=== PATIENT | male | born 1980 | race American Indian/Alaskan Native ===

== ENCOUNTER 2016-04-29 00:09 | Emergency (ER) | payer SELFPAY ==
[2016-04-29 00:39] VITALS: BP 123/74
[2016-04-29 01:48] LABS: Anion Gap 15 mmol/L; BUN/Creatinine Ratio 13.33; Blood Urea Nitrogen 12 mg/dL (9-20); Calcium 9.1 mg/dL (8.4-10.2); Carbon Dioxide 26 mmol/L (22-30); Chloride 102.5 mmol/L (98-107); Glucose 95 mg/dL (75-100); Potassium 4.5 mmol/L (3.6-5.0); Sodium 139 mmol/L (137-145)
[2016-04-29 02:11] LABS: Basophils % (Auto) 0.3 % (0.0-1.8); Eosinophils % (Auto) 0.8 % (0.0-4.3); Hematocrit 43.3 % (35.5-45.6); Hemoglobin 13.4 gm/dl (11.8-15.2); Mean Corpuscular HGB Conc 31 % (32-34); Mean Corpuscular Volume 71 fl (84-94); Platelet Count 202 K/mm3 (140-440); Red Blood Count 6.09 M/mm3 (3.65-5.03); Red Cell Distribution Width 16.1 % (13.2-15.2); White Blood Count 4.7 K/mm3 (4.5-11.0)
[2016-04-29 02:14] LABS: Mean Corpuscular Hemoglobin 22 pg (28-32)
--- NOTE | 2016-04-29 08:52 | XRay Report ---
ROUTINE CHEST, TWO VIEWS: PA and lateral views demonstrate the heart and mediastinal contour to be of normal size and shape. The lungs are clear and fully expanded and the soft tissues and bony structures are normal. IMPRESSION: Normal study.
--- NOTE | 2016-04-30 10:21 | ED Elopement Review ---
ED Pt Elopement review - Results review Lab results: Laboratory Tests 04/29/16 04/29/16 01:18 01:18 WBC 4.7 RBC 6.09 H Hgb 13.4 Hct 43.3 MCV 71 L MCH 22 L MCHC 31 L RDW 16.1 H Plt Count 202 Lymph % (Auto) 30.8 [place] % (Auto) 11.2 H Eos % (Auto) 0.8 Baso % (Auto) 0.3 Lymph # 1.5 [place] # 0.5 Eos # 0.0 Baso # 0.0 Seg Neutrophils % 56.9 Seg Neutrophils # 2.7 Sodium 139 Potassium 4.5 Chloride 102.5 Carbon Dioxide 26 Anion Gap 15 BUN 12 Creatinine 0.9 Estimated GFR > 60 BUN/Creatinine Ratio 13.33 Glucose 95 Calcium 9.1 - Call Back decision Pt Call Back Decision: No action required ([id number])
== END 2016-04-29 01:05 | disposition left against medical advice (07) ==
LOC: ED 00:09
DX: R05 Cough (principal); R11.10 Vomiting, unspecified; R19.7 Diarrhea, unspecified; Z53.21 Procedure and treatment not carried out due to patient leaving prior to being seen by health care provider
CPT/HCPCS: 36415; 71020; 80048; 85025; 87040

== ENCOUNTER 2016-05-04 21:30 | Emergency (ER) | payer SELFPAY ==
[2016-05-04] MEDS ORDERED: TORADOL IV ONE (22:23)
[2016-05-04] MEDS ORDERED: ZOFRAN IV ONE (22:23)
[2016-05-04] MEDS ORDERED: NACL 0.9% 1000 ML 1,000 ML IV ONE (22:23)
[2016-05-04] MEDS ORDERED: ATIVAN IV ONE (23:46)
[2016-05-04 23:48] LABS: Alanine Aminotransferase 64 units/L (7-56); Albumin 3.5 g/dL (3.9-5); Albumin/Globulin Ratio 0.8 %; Alkaline Phosphatase 139 units/L (35-129); Anion Gap 14 mmol/L; BUN/Creatinine Ratio 9.16; Bilirubin,Total 0.2 mg/dL (0.1-1.2); Blood Urea Nitrogen 11 mg/dL (9-20); Calcium 8.5 mg/dL (8.4-10.2); Carbon Dioxide 24 mmol/L (22-30); Chloride 105.6 mmol/L (98-107); Glucose 110 mg/dL (75-100); Lipase 47 units/L (13-60); Potassium 3.7 mmol/L (3.6-5.0); Sodium 140 mmol/L (137-145)
[2016-05-04 23:55] LABS: Basophils % (Auto) 0.2 % (0.0-1.8); Eosinophils % (Auto) 0.3 % (0.0-4.3); Hematocrit 38.7 % (35.5-45.6); Hemoglobin 12.1 gm/dl (11.8-15.2); Mean Corpuscular HGB Conc 31 % (32-34); Mean Corpuscular Volume 71 fl (84-94); Platelet Count 220 K/mm3 (140-440); Red Blood Count 5.45 M/mm3 (3.65-5.03); Red Cell Distribution Width 16.1 % (13.2-15.2)
[2016-05-04 23:58] LABS: Mean Corpuscular Hemoglobin 22 pg (28-32)
[2016-05-05 01:09] LABS: Bilirubin,Urine NEG (Negative); Blood,Urine SM (Negative); Ketones,Urine NEG (Negative); Leukocyte Esterase,Urine NEG (Negative); Mucus,Urine FEW /HPF; Nitrite,Urine NEG (Negative); Protein,Urine <15 mg/dL mg/dL (Negative); Urobilinogen,Urine < 2.0 mg/dL (<2.0); WBC,Urine < 1.0 /HPF (0.0-6.0)
--- NOTE | 2016-05-05 02:00 | XRay Report ---
FINAL REPORT PROCEDURE: XR CHEST ROUTINE 2V TECHNIQUE: PA and lateral chest radiographs were obtained. CPT 17984 HISTORY: fever, cough COMPARISON: No prior studies are available for comparison. FINDINGS: Heart: Normal. Mediastinum/Vessels: Normal. Lungs/Pleural space: Mild atelectasis bilateral lower lungs. No effusion or pneumothorax. Bony thorax: No acute osseous abnormality. Other: IMPRESSION: Mild bilateral lower lung atelectasis.
[2016-05-05] MEDS ORDERED: NACL 0.9% 1000 ML 1,000 ML IV ONE (02:41)
--- NOTE | 2016-05-05 04:32 | Emergency Department Report ---
ED Fever HPI - General Chief Complaint: Fever Stated Complaint: FEVER Time Seen by Provider: 05/04/16 22:05 Source: patient Exam Limitations: no limitations - History of Present Illness Initial Comments: 35-year-old male with a past medical history of HIV/AIDS and bipolar disorder presents to the hospital complains of fever today. 101.9 upon arrival and Patient states he had 2 episodes of vomiting and 3 episodes of diarrhea. Also reports a cough productive of green sputum with intermittent wheezing. He complains of generalized body aches including a mild headache without neck stiffness. No reports of dysuria. Patient did not receive a flu shot. Patient is noncompliant with HIV medications and has not had a CD4 checked in quite some time. ED Review of Systems ROS: Stated complaint: FEVER Other details as noted in HPI Comment: All other systems reviewed and negative Other: Constitutional: Positive fever chew Eyes: No eye pain visual changes ENT: Sore throat Neck: Denies pain Respiratory: Cough and intermittent wheezing Cardiovascular: Denies chest pain, palpitations, syncope GI: Denies abdominal pain : Denies dysuria Musculoskeletal: Lower back pain Skin: Denies rash, lesions, erythema Neurologic: Positive headache Psychiatric: Denies suicidal ideation, hallucinations ED Past Medical Hx - Past Medical History Previous Medical History?: Yes Hx Psychiatric Treatment: Yes (depression bipolar) Hx HIV: Yes Additional medical history: syphillis, BIPOLAR,DEPRESSION - Social History Smoking Status: Never Smoker Substance Use Type: None - Medications Home Medications: Home Medications Medication Instructions Recorded Confirmed Last Taken Type traMADol [Ultram] 50 mg PO Q6HR PRN #20 tablet 05/07/15 Unknown Rx Sulfamethoxazole/Trimethoprim 1 each PO BID #14 tablet 05/09/15 Unknown Rx [Bactrim DS TAB] Clindamycin [Clindamycin CAP] 300 mg PO Q8H #30 cap 01/12/16 Unknown Rx Ibuprofen [Motrin 600 MG tab] 600 mg PO Q6H PRN #20 tablet 01/12/16 Unknown Rx Azithromycin [Zithromax Z-HERNÁN] 1 dose PO DAILY 5 Days 05/05/16 Unknown Rx Ibuprofen [Motrin] 800 mg PO Q8HR PRN #30 tablet 05/05/16 Unknown Rx Promethazine [Phenergan TAB] 25 mg PO Q6HR PRN #30 tab 05/05/16 Unknown Rx ED Physical Exam - General Limitations: Altered Mental Status, Other - Other Other exam information: General: No limitations Head exam: Atraumatic, normocephalic Eyes exam: Normal appearance ENT: Moist mucous membrane, no thrush and no exudate Neck exam: Normal inspection, full range of motion Respiratory exam: Clear to auscultation bilateral, no wheezes, rales, crackles Cardiovascular: Mild tachycardia regular rhythm Abdomen: Soft, nondistended, and nontender, with normal bowel sounds, no rebound, or guarding Extremity: Full range of motion normal inspection no deformity Back: Normal Inspection, full range of motion, no tenderness Neurologic: Alert, oriented x3, cranial nerves intact, no motor or sensory deficit Psychiatric: normal affect, normal mood Skin: Warm, dry, intact ED Course Vital Signs 05/04/16 05/04/16 05/05/16 21:38 21:46 00:39 Temperature 101.9 F H 101.9 F H 99.1 F Pulse Rate 117 H 119 H 101 H Respiratory 20 20 Rate Blood Pressure 124/56 Blood Pressure 124/56 108/57 [Left] O2 Sat by Pulse 99 99 95 Oximetry 05/05/16 05/05/16 05/05/16 00:43 02:49 03:39 Temperature 98.9 F Pulse Rate 95 H 97 H Respiratory 20 18 18 Rate Blood Pressure Blood Pressure 110/53 121/79 [Left] O2 Sat by Pulse 99 99 Oximetry 05/05/16 04:49 Temperature 101.8 F H Pulse Rate 114 H Respiratory 26 H Rate Blood Pressure Blood Pressure 141/87 [Left] O2 Sat by Pulse 96 Oximetry - Reevaluation(s) Reevaluation #1: 05/05/16 04:44 Patient received normal saline, Toradol, and Zofran with improvement in symptoms ED Medical Decision Making - Lab Data Result diagrams: 05/04/16 23:08 05/04/16 23:08 Lab Results 05/04/16 05/04/16 05/04/16 Range/Units 23:08 23:08 23:08 WBC 8.0 (4.5-11.0) K/mm3 RBC 5.45 H (3.65-5.03) M/mm3 Hgb 12.1 (11.8-15.2) gm/dl Hct 38.7 (35.5-45.6) % MCV 71 L (84-94) fl MCH 22 L (28-32) pg MCHC 31 L (32-34) % RDW 16.1 H (13.2-15.2) % Plt Count 220 (140-440) K/mm3 Lymph % (Auto) 16.1 (13.4-35.0) % [place] % (Auto) 9.7 H (0.0-7.3) % Eos % (Auto) 0.3 (0.0-4.3) % Baso % (Auto) 0.2 (0.0-1.8) % Lymph # 1.3 (1.2-5.4) K/mm3 [place] # 0.8 (0.0-0.8) K/mm3 Eos # 0.0 (0.0-0.4) K/mm3 Baso # 0.0 (0.0-0.1) K/mm3 Seg Neutrophils % 73.7 H (40.0-70.0) % Seg Neutrophils # 5.9 (1.8-7.7) K/mm3 VBG pH (7.320-7.420) Sodium 140 (137-145) mmol/L Potassium 3.7 (3.6-5.0) mmol/L Chloride 105.6 (98-107) mmol/L Carbon Dioxide 24 (22-30) mmol/L Anion Gap 14 mmol/L BUN 11 (9-20) mg/dL Creatinine 1.2 (0.8-1.5) mg/dL Estimated GFR > 60 ml/min BUN/Creatinine Ratio 9.16 % Glucose 110 H (75-100) mg/dL Lactic Acid 1.1 (0.7-2.0) mmol/L Calcium 8.5 (8.4-10.2) mg/dL Total Bilirubin 0.2 (0.1-1.2) mg/dL AST 46 H (5-40) units/L ALT 64 H (7-56) units/L Alkaline Phosphatase 139 H (35-129) units/L Total Protein 8.0 (6.3-8.2) g/dL Albumin 3.5 L (3.9-5) g/dL Albumin/Globulin Ratio 0.8 % Lipase 47 (13-60) units/L Urine Color (Yellow) Urine Turbidity (Clear) Urine pH (5.0-7.0) Ur Specific [place] (1.003-1.030) Urine Protein (Negative) mg/dL Urine Glucose (UA) (Negative) mg/dL Urine Ketones (Negative) mg/dL Urine Blood (Negative) Urine Nitrite (Negative) Ur Reducing Substances Urine Bilirubin (Negative) Urine Ictotest Urine Urobilinogen (<2.0) mg/dL Ur Leukocyte Esterase (Negative) Urine WBC (Auto) (0.0-6.0) /HPF Urine RBC (Auto) (0.0-6.0) /HPF U Epithel Cells (Auto) (0-13.0) /HPF Urine Mucus /HPF 05/04/16 05/05/16 Range/Units 23:08 00:44 WBC (4.5-11.0) K/mm3 RBC (3.65-5.03) M/mm3 Hgb (11.8-15.2) gm/dl Hct (35.5-45.6) % MCV (84-94) fl MCH (28-32) pg MCHC (32-34) % RDW (13.2-15.2) % Plt Count (140-440) K/mm3 Lymph % (Auto) (13.4-35.0) % [place] % (Auto) (0.0-7.3) % Eos % (Auto) (0.0-4.3) % Baso % (Auto) (0.0-1.8) % Lymph # (1.2-5.4) K/mm3 [place] # (0.0-0.8) K/mm3 Eos # (0.0-0.4) K/mm3 Baso # (0.0-0.1) K/mm3 Seg Neutrophils % (40.0-70.0) % Seg Neutrophils # (1.8-7.7) K/mm3 VBG pH 7.433 H (7.320-7.420) Sodium (137-145) mmol/L Potassium (3.6-5.0) mmol/L Chloride (98-107) mmol/L Carbon Dioxide (22-30) mmol/L Anion Gap mmol/L BUN (9-20) mg/dL Creatinine (0.8-1.5) mg/dL Estimated GFR ml/min BUN/Creatinine Ratio % Glucose (75-100) mg/dL Lactic Acid (0.7-2.0) mmol/L Calcium (8.4-10.2) mg/dL Total Bilirubin (0.1-1.2) mg/dL AST (5-40) units/L ALT (7-56) units/L Alkaline Phosphatase (35-129) units/L Total Protein (6.3-8.2) g/dL Albumin (3.9-5) g/dL Albumin/Globulin Ratio % Lipase (13-60) units/L Urine Color Yellow (Yellow) Urine Turbidity Clear (Clear) Urine pH 5.0 (5.0-7.0) Ur Specific [place] 1.020 (1.003-1.030) Urine Protein <15 mg/dl (Negative) mg/dL Urine Glucose (UA) Neg (Negative) mg/dL Urine Ketones Neg (Negative) mg/dL Urine Blood Sm (Negative) Urine Nitrite Neg (Negative) Ur Reducing Substances Not Reportable Urine Bilirubin Neg (Negative) Urine Ictotest Not Reportable Urine Urobilinogen < 2.0 (<2.0) mg/dL Ur Leukocyte Esterase Neg (Negative) Urine WBC (Auto) < 1.0 (0.0-6.0) /HPF Urine RBC (Auto) 2.0 (0.0-6.0) /HPF U Epithel Cells (Auto) < 1.0 (0-13.0) /HPF Urine Mucus Few /HPF Strep negative Influenza negative - Radiology Data Radiology results: report reviewed (chest x-ray: Bibasilar atelectasis no acute infiltrate) - Medical Decision Making Patient likely has a viral syndrome however, given immunosuppression we'll treat with antibiotics for atypical pneumonia. No signs of infection chest x- ray. Labs unremarkable. - Differential Diagnosis pneumonia, bronchitis, UTI, viral syndrome Critical Care Time: No Critical care attestation.: If time is entered above; I have spent that time in minutes in the direct care of this critically ill patient, excluding procedure time. ED Disposition Clinical Impression: Fever, AIDS, Viral syndrome, Acute bronchitis, Gastroenteritis Disposition: DISCHARGED TO HOME OR SELFCARE Is pt being admited?: No Does the pt Need Aspirin: No Condition: Stable Instructions: Acute Bronchitis (ED), Viral Syndrome (ED), Gastroenteritis (ED) , Human Immunodeficiency Virus Infection (ED) Additional Instructions: Take the medication as prescribed. Return if symptoms worsen. Prescriptions: Azithromycin [Zithromax Z-HERNÁN] 1 dose PO DAILY 5 Days Ibuprofen [Motrin] 800 mg PO Q8HR PRN #30 tablet PRN Reason: Pain Promethazine [Phenergan TAB] 25 mg PO Q6HR PRN #30 tab PRN Reason: Nausea Referrals: PRIMARY CARE, [Primary Care Provider] - 3-5 Days RONY ROSE MD [Staff Physician] - 3-5 Days Time of Disposition: 05:27
[2016-05-05] MEDS ORDERED: MOTRIN PO ONE (04:57)
[2016-05-05] MEDS ORDERED: ZITHROMAX PO ONE (05:27)
[2016-05-05 06:43] VITALS: BP 118/92
== END 2016-05-05 06:44 | disposition home or self-care (01) ==
LOC: ED 21:30
DX: J20.9 Acute bronchitis, unspecified (principal); K52.9 Noninfective gastroenteritis and colitis, unspecified; B34.9 Viral infection, unspecified; Z21 Asymptomatic human immunodeficiency virus [HIV] infection status; F31.9 Bipolar disorder, unspecified
CPT/HCPCS: 36415; 71020; 80053; 81001; 82140; 82805; 83690; 85025; 87040; 87086; 87116; 87400; 87430; 96361; 96374; 96375; 99284; J1885; J2405; J7030

== ENCOUNTER 2019-04-02 21:11 | Emergency (ER) | payer SELFPAY ==
[2019-04-02] MEDS ORDERED: SODIUM CHLORIDE 0.9% 500 ML 500 ML IV ONE (22:27)
[2019-04-02] MEDS ORDERED: SODIUM CHLORIDE 0.9% 1000 ML IV SOLN IV ONE (22:42)
--- NOTE | 2019-04-02 22:48 | Emergency Department Report ---
ED General Adult HPI - General Chief complaint: Chest Pain Stated complaint: CP Time Seen by Provider: 04/02/19 22:34 Source: patient Mode of arrival: Ambulatory Limitations: No Limitations - History of Present Illness Initial comments: Patient is a 38-year-old male with history of HIV, noncompliant with his medication. Patient presented to the ER complaining of fever, chills, cough productive with greenish sputum for the last 3 days. Patient also complaining of generalized body ache. Patient also complaining of right chest pain, sharp with no radiation. Pain is increased with cough. Patient denies any shortness of breath. - Related Data Previous Rx's Medication Instructions Recorded Last Taken Type traMADoL [Ultram] 50 mg PO Q6HR PRN #20 tablet 05/07/15 Unknown Rx Sulfamethoxazole/Trimethoprim 1 each PO BID #14 tablet 05/09/15 Unknown Rx [Bactrim DS TAB] Clindamycin [Clindamycin CAP] 300 mg PO Q8H #30 cap 01/12/16 Unknown Rx Ibuprofen [Motrin 600 MG tab] 600 mg PO Q6H PRN #20 tablet 01/12/16 Unknown Rx Azithromycin [Zithromax Z-HERNÁN] 1 dose PO DAILY 5 Days tab 05/05/16 Unknown Rx Ibuprofen [Motrin] 800 mg PO Q8HR PRN #30 tablet 05/05/16 Unknown Rx Promethazine [Phenergan TAB] 25 mg PO Q6HR PRN #30 tab 05/05/16 Unknown Rx Allergies Allergy/AdvReac Type Severity Reaction Status Date / Time butalbital [From Fioricet] Allergy Hives Verified 04/02/19 21:15 caffeine [From Fioricet] Allergy Hives Verified 12/13/14 00:16 Fish Containing Products Allergy Swelling Verified 12/13/14 00:16 haloperidol [From Haldol] Allergy Unknown Verified 12/13/14 00:16 haloperidol lactate Allergy Unknown Verified 12/13/14 00:16 [From Haldol] Penicillins AdvReac Unknown Verified 12/13/14 00:16 ED Review of Systems ROS: Stated complaint: CP Other details as noted in HPI Comment: All other systems reviewed and negative Constitutional: chills, fever Respiratory: cough. denies: shortness of breath, SOB with exertion, SOB at rest, wheezing Cardiovascular: chest pain, palpitations Gastrointestinal: denies: abdominal pain, nausea, vomiting, diarrhea, const ipation, hematemesis, melena Musculoskeletal: denies: back pain Neurological: denies: headache, weakness, numbness, paresthesias, confusion ED Past Medical Hx - Past Medical History Previous Medical History?: Yes Hx Psychiatric Treatment: Yes (depression bipolar) Hx HIV: Yes Additional medical history: syphillis, BIPOLAR,DEPRESSION - Surgical History Past Surgical History?: No - Social History Smoking Status: Current Every Day Smoker - Medications Home Medications: Home Medications Medication Instructions Recorded Confirmed Last Taken Type traMADoL [Ultram] 50 mg PO Q6HR PRN #20 tablet 05/07/15 Unknown Rx Sulfamethoxazole/Trimethoprim 1 each PO BID #14 tablet 05/09/15 Unknown Rx [Bactrim DS TAB] Clindamycin [Clindamycin CAP] 300 mg PO Q8H #30 cap 01/12/16 Unknown Rx Ibuprofen [Motrin 600 MG tab] 600 mg PO Q6H PRN #20 tablet 01/12/16 Unknown Rx Azithromycin [Zithromax Z-HERNÁN] 1 dose PO DAILY 5 Days tab 05/05/16 Unknown Rx Ibuprofen [Motrin] 800 mg PO Q8HR PRN #30 tablet 05/05/16 Unknown Rx Promethazine [Phenergan TAB] 25 mg PO Q6HR PRN #30 tab 05/05/16 Unknown Rx ED Physical Exam - General Limitations: No Limitations General appearance: alert, in no apparent distress - Head Head exam: Present: atraumatic, normocephalic, normal inspection - Eye Eye exam: Present: normal appearance - ENT ENT exam: Present: normal exam, normal orophraynx, mucous membranes moist - Neck Neck exam: Present: normal inspection, full ROM. Absent: tenderness, meningismus, lymphadenopathy, thyromegaly - Respiratory Respiratory exam: Present: normal lung sounds bilaterally, chest wall tenderness. Absent: respiratory distress, wheezes, rales, rhonchi - Cardiovascular Cardiovascular Exam: Present: tachycardia - GI/Abdominal GI/Abdominal exam: Present: soft, normal bowel sounds. Absent: distended, tenderness, guarding, rebound, rigid, organomegaly, mass, bruit, pulsatile mass, hernia - Extremities Exam Extremities exam: Present: normal inspection, full ROM, normal capillary refill. Absent: tenderness, pedal edema, joint swelling, calf tenderness - Back Exam Back exam: Present: normal inspection, full ROM. Absent: CVA tenderness (R), CVA tenderness (L), muscle spasm, paraspinal tenderness, vertebral tenderness - Neurological Exam Neurological exam: Present: alert, oriented X3, CN II-XII intact, normal gait, reflexes normal - Psychiatric Psychiatric exam: Present: normal mood - Skin Skin exam: Present: warm, intact, normal color ED Course Vital Signs 04/02/19 04/02/19 04/02/19 22:21 22:28 22:47 Temperature 100.1 F H Pulse Rate 118 H Respiratory 24 18 Rate Blood Pressure 119/77 [Right] O2 Sat by Pulse 97 100 Oximetry ED Medical Decision Making - Lab Data Result diagrams: 04/02/19 22:41 04/02/19 22:41 - EKG Data -: EKG Interpreted by Mo EKG shows normal: sinus rhythm Rate: tachycardia - EKG Data Interpretation: no acute changes - Radiology Data Radiology results: report reviewed - Medical Decision Making Patient is a 38-year-old male with history of HIV, noncompliant with his medication. Patient presented to the ER complaining of fever, chills, cough productive with greenish sputum for the last 3 days. Patient also complaining of generalized body ache. Patient also complaining of right chest pain, sharp with no radiation. Pain is increased with cough. Patient denies any shortness of breath. Patient received normal saline and Levaquin. Labs reviewed and is unremarkable. Chest x-ray is negative for acute finding. Patient symptoms is consistent with acute bronchitis. Patient given prescription for Levaquin and Robitussin. Patient stated that she just get out of [facility] and she will follow-up with [place] [facility] in the next 2 to 3 days. Patient advised to return to the ER if her symptoms are not improved. Critical care attestation.: If time is entered above; I have spent that time in minutes in the direct care of this critically ill patient, excluding procedure time. ED Disposition Clinical Impression: Fever, Acute bronchitis Disposition: - TO HOME OR SELFCARE Is pt being admited?: No Condition: Stable Instructions: Acute Bronchitis (ED) Referrals: PRIMARY CARE, [Primary Care Provider] - 3-5 Days
--- NOTE | 2019-04-02 23:05 | XRay Report ---
CHEST 1 VIEW INDICATION / CLINICAL INFORMATION: MAIN: possible Sepsis; CP burning across chest for 2days. cough. Pounding ANGELO. Runny nose. Occaional D IB. Denies tylenol or motrin today. Nonlabored. MAEW. .. COMPARISON: 05/04/2016 FINDINGS: SUPPORT DEVICES: None. HEART / MEDIASTINUM: No significant abnormality. LUNGS / PLEURA: No significant pulmonary or pleural abnormality.. No pneumothorax. ADDITIONAL FINDINGS: No significant additional findings. IMPRESSION: 1. No acute findings. Signer Name: Cal Elias MD Signed: 04/02/2019 11:01 PM Workstation Name: [id number]
[2019-04-02 23:11] LABS: Basophils % (Auto) 0.5 % (0.0-1.8); Eosinophils % (Auto) 0.1 % (0.0-4.3); Hematocrit 39.9 % (35.5-45.6); Hemoglobin 12.5 gm/dl (11.8-15.2); Lymphocytes # (Auto) 0.6 K/mm3 (1.2-5.4); Lymphocytes % (Auto) 6.6 % (13.4-35.0); Mean Corpuscular HGB Conc 31 % (32-34); Mean Corpuscular Volume 76 fl (84-94); Monocytes # (Auto) 0.7 K/mm3 (0.0-0.8); Monocytes % (Auto) 7.4 % (0.0-7.3); Platelet Count 264 K/mm3 (140-440); Red Blood Count 5.24 M/mm3 (3.65-5.03)
[2019-04-02 23:18] LABS: Bilirubin,Urine NEG (Negative); Blood,Urine NEG (Negative); Color,Urine Yellow (Yellow); Mucus,Urine FEW /HPF; Protein,Urine <15 mg/dL mg/dL (Negative)
[2019-04-02 23:28] LABS: Albumin 4.1 g/dL (3.9-5); BUN/Creatinine Ratio 8; Blood Urea Nitrogen 7 mg/dL (9-20); Calcium 9.5 mg/dL (8.4-10.2); Hemolysis Index 155
[2019-04-02 23:33] LABS: INR 1.16 (0.87-1.13)
[2019-04-02 23:45] LABS: Alanine Aminotransferase 37 units/L (7-56)
[2019-04-02] MEDS ORDERED: MORPHINE 2 MG/1 ML INJ IV ONE (23:55)
[2019-04-02] MEDS ORDERED: MORPHINE 2 MG/1 ML INJ ONE (23:58)
[2019-04-03] MEDS ORDERED: ACETAMINOPHEN 500 MG TAB PO ONE (01:02)
[2019-04-03 03:58] VITALS: BP 108/57
== END 2019-04-03 02:00 | disposition home or self-care (01) ==
LOC: ED 21:11
DX: J20.9 Acute bronchitis, unspecified (principal); F31.9 Bipolar disorder, unspecified; F17.200 Nicotine dependence, unspecified, uncomplicated; Z79.899 Other long term (current) drug therapy; Z88.0 Allergy status to penicillin; Z91.013 Allergy to seafood; Z88.8 Allergy status to other drugs, medicaments and biological substances
CPT/HCPCS: 36415; 71045; 80053; 81001; 82140; 82805; 85025; 85610; 87040; 87086; 93005; 93010; 96365; 96375; 99284; J1956; J2270; J7030; J7040

== ENCOUNTER 2021-08-12 09:52 | Emergency (ER) | payer SELFPAY ==
[2021-08-12 09:58] VITALS: BP 130/86
[2021-08-12 13:13] LABS: Bilirubin,Urine NEG (Negative); Blood,Urine MOD (Negative); Color,Urine Amber (Yellow)
--- NOTE | 2021-08-12 13:13 | Emergency Department Report ---
ED Dysuria HPI - HPI Chief Complaint: Urogenital-Male Stated Complaint: DYSURIA Time Seen by Provider: 08/12/21 12:41 Duration: 3 Days Location of Discomfort: Suprapubic Severity: Mild Symptoms: Dysuria: Yes, Frequency: No, Suprapubic Pain: No, Flank Pain: No, Hematuria: No, Abdominal Pain: No, Previous UTI's: Yes Other History: Patient is a 40-year-old -[place] male that comes to the ER with penile tingling. He states that he just got out of group home. He is having sex with men. He is concerned that he has an STD. He is a high risk individual. He does have a history of HIV and is off antivirals. He denies fever or chills. Denies cough. Denies night sweats. Patient denies any abdominal pain. He denies back pain. He denies nausea or vomiting. Denies diarrhea. Patient has no CVA tenderness and his abdominal exam is unremarkable ED Review of Systems ROS: Stated complaint: DYSURIA Other details as noted in HPI Comment: All other systems reviewed and negative ED Past Medical Hx - Past Medical History Previous Medical History?: Yes Hx Psychiatric Treatment: Yes (depression bipolar) Hx HIV: Yes Additional medical history: syphillis, BIPOLAR,DEPRESSION - Surgical History Past Surgical History?: No - Family History Family history: no significant - Social History Smoking Status: Current Every Day Smoker Substance Use Type: Alcohol - Medications Home Medications: Home Medications Medication Instructions Recorded Confirmed Last Taken Type traMADoL [Ultram] 50 mg PO Q6HR PRN #20 tablet 05/07/15 Unknown Rx Sulfamethoxazole/Trimethoprim 1 each PO BID #14 tablet 05/09/15 Unknown Rx [Bactrim DS TAB] Clindamycin [Clindamycin CAP] 300 mg PO Q8H #30 cap 01/12/16 Unknown Rx Ibuprofen [Motrin 600 MG tab] 600 mg PO Q6H PRN #20 tablet 01/12/16 Unknown Rx Azithromycin [Zithromax Z-HERNÁN] 1 dose PO DAILY 5 Days tab 05/05/16 Unknown Rx Ibuprofen [Motrin] 800 mg PO Q8HR PRN #30 tablet 05/05/16 Unknown Rx Promethazine [Phenergan TAB] 25 mg PO Q6HR PRN #30 tab 05/05/16 Unknown Rx guaiFENesin [Robitussin] 5 ml PO TID PRN #100 ml 04/03/19 Unknown Rx levoFLOXacin [Levaquin TAB] 500 mg PO QDAY #7 tablet 04/03/19 Unknown Rx Azithromycin [Zithromax Z-HERNÁN] 1,000 mg PO ONCE #4 08/12/21 Unknown Rx metroNIDAZOLE [Flagyl] 500 mg PO ONCE #4 tab 08/12/21 Unknown Rx Dysuria Exam - Exam General: Vital signs noted. No distress. Alert and acting appropriately. Exam: Yes Moist Mucous Membranes, No CVA Tenderness, No Abdominal Tenderness, No Rigidity or Guarding ED Course Vital Signs 08/12/21 09:56 Temperature 98.2 F Pulse Rate 60 Respiratory 18 Rate Blood Pressure 130/86 [Left] O2 Sat by Pulse 98 Oximetry ED Medical Decision Making - Medical Decision Making Vital Signs 08/12/21 09:56 Temperature 98.2 F Pulse Rate 60 Respiratory 18 Rate Blood Pressure 130/86 [Left] O2 Sat by Pulse 98 Oximetry Labs 08/12/21 Unknown Urine Color [place] Urine Turbidity Cloudy Urine pH 5.0 Ur Specific [place] 1.038 H Urine Protein 100 mg/dl Urine Glucose (UA) Neg Urine Ketones 80 Urine Blood Mod Urine Nitrite Neg Urine Bilirubin Neg Urine Urobilinogen 4.0 Ur Leukocyte Esterase Lg Urine WBC (Auto) > 182.0 H Urine RBC (Auto) > 182.0 Urine Mucus 2+ Urine Yeast (Bud[place]) 2+ Patient empirically treated for STD. Patient has been educated about the [place] [facility] on [address]. I have encouraged him to get follow-up given his HIV status. Not only to make sure that his STD clears but that he gets on antivirals. Patient denies any flank or back pain. He denies nausea vomiting diarrhea. He is ambulatory, not ill nontoxic on arrival to the ER. He remains the same on discharge exam. Patient being discharged home with discharge plan of care including diet, activity, medications and follow-up. - Differential Diagnosis UTI/STD Critical care attestation.: If time is entered above; I have spent that time in minutes in the direct care of this critically ill patient, excluding procedure time. ED Disposition Clinical Impression: STD (male), History of HIV infection Disposition: HOME / SELF CARE / HOMELESS Is pt being admited?: No Does the pt Need Aspirin: No Condition: Stable Instructions: Safe Sex Additional Instructions: Get all of the medications that I given to you today filled and take them all at 1 time. They must be taken today. At that point you will be empirically treated for STD. Safe sex. Follow-up with [place] [facility] regarding her HIV and antiviral status. Have given you referral below Prescriptions: metroNIDAZOLE [Flagyl] 500 mg PO ONCE #4 tab Azithromycin [Zithromax Z-HERNÁN] 1,000 mg PO ONCE #4 Referrals: [facility] [Outside] - 3-5 Days Time of Disposition: 13:13
[2021-08-12 13:23] LABS: Mucus,Urine 2+ /HPF
[2021-08-12 13:33] LABS: RBC,Urine > 182.0 /HPF (0.0-6.0); WBC,Urine > 182.0 /HPF (0.0-6.0)
[2021-08-12] MEDS ORDERED: LIDOCAINE-MPF (1%) 10 MG/1 ML VIAL 5 ML INFILTRATI ONE (13:37)
== END 2021-08-12 14:00 | disposition home or self-care (01) ==
LOC: ED 09:52
DX: Z20.2 Contact with and (suspected) exposure to infections with a predominantly sexual mode of transmission (principal); Z21 Asymptomatic human immunodeficiency virus [HIV] infection status; F31.9 Bipolar disorder, unspecified; F17.200 Nicotine dependence, unspecified, uncomplicated; Z79.899 Other long term (current) drug therapy
CPT/HCPCS: 81001; 96372; 99283; J0696; J3490

== ENCOUNTER 2021-09-04 13:50 | Emergency (ER) | payer SELFPAY ==
[2021-09-04 13:57] VITALS: BP 144/73
== END 2021-09-05 12:31 | disposition left against medical advice (07) ==
LOC: ED 13:50
DX: E86.0 Dehydration (principal); Z53.21 Procedure and treatment not carried out due to patient leaving prior to being seen by health care provider